=== PATIENT | male | born 1990 | race American Indian/Alaskan Native ===

== ENCOUNTER 2017-11-26 12:46 | Emergency (ER) | payer SELFPAY ==
[2017-11-26] MEDS ORDERED: MOTRIN PO ONE (12:58)
[2017-11-26] MEDS ORDERED: MOTRIN ONE (12:58)
--- NOTE | 2017-11-26 15:07 | Emergency Department Report ---
ED Upper Extremity Inj HPI - General Chief Complaint: Pain General Stated Complaint: RIGHT HAND SWOLLEN/NUMB Time Seen by Provider: 11/26/17 14:54 Source: patient Mode of arrival: Ambulatory Limitations: No Limitations - History of Present Illness Initial Comments: Mr. Cates 27 yo male presents with infection of distal right middle finger. He often bites his finger nails. Pain is minimal No drainage Complaint: Injury to:: right, finger -: Gradual, days(s) (3) Other Extremity Injury: Fingers: Right (middle finger) - Related Data Previous Rx's Medication Instructions Recorded Last Taken Type Sulfamethoxazole/Trimethoprim 1 each PO BID #20 tablet 11/26/17 Unknown Rx [Bactrim DS TAB] Allergies Allergy/AdvReac Type Severity Reaction Status Date / Time No Known Allergies Allergy Unverified 11/26/17 12:58 ED Review of Systems ROS: Stated complaint: RIGHT HAND SWOLLEN/NUMB Other details as noted in HPI ED Past Medical Hx - Past Medical History Previous Medical History?: No - Surgical History Past Surgical History?: No - Social History Smoking Status: Never Smoker Substance Use Type: None - Medications Home Medications: Home Medications Medication Instructions Recorded Confirmed Last Taken Type Sulfamethoxazole/Trimethoprim 1 each PO BID #20 tablet 11/26/17 Unknown Rx [Bactrim DS TAB] ED Physical Exam - General Limitations: No Limitations General appearance: alert, in no apparent distress - Psychiatric Psychiatric exam: Present: normal affect, normal mood - Skin Skin exam: Present: intact, erythema - Other Other exam information: distal erythema to middle right finger, fluctuant purulence noted at nailbed ED Course Vital Signs 11/26/17 12:52 Temperature 98.4 F Pulse Rate 101 H Blood Pressure 135/70 O2 Sat by Pulse 96 Oximetry - I & D Right Finger Type of Procedure: Simple Blade Size: 11 Progress: alcohol prep, small 8 mm incision, 1 ml of pus expressed, bandage provided by nursing staff ED Medical Decision Making - Medical Decision Making paronychia of right middle finger, I&D successful, rx: bactrim Critical care attestation.: If time is entered above; I have spent that time in minutes in the direct care of this critically ill patient, excluding procedure time. ED Disposition Clinical Impression: Paronychia Disposition: DC- TO HOME OR SELFCARE Is pt being admited?: No Does the pt Need Aspirin: No Condition: Stable Instructions: Paronychia (ED) Prescriptions: Sulfamethoxazole/Trimethoprim [Bactrim DS TAB] 1 each PO BID #20 tablet Time of Disposition: 15:09
[2017-11-26 15:21] VITALS: BP 128/76
== END 2017-11-26 15:19 | disposition home or self-care (01) ==
LOC: ED 12:46
DX: L03.011 Cellulitis of right finger (principal)
CPT/HCPCS: 99282